=== PATIENT | female | born 1995 | race Caucasian/White ===

== ENCOUNTER 2017-04-09 23:42 | Emergency (ER) | payer OTHER ==
[~2017-04-09] VITALS: Ht 160 cm; Wt 81.6 kg
[2017-04-10 00:17] VITALS: BP 141/91
[2017-04-10] MEDS ORDERED: KETOROLAC TROMETH 60MG/2ML VIAL IM ONE (02:45)
[2017-04-10] MEDS ORDERED: CYCLOBENZAPRINE HCL 10 MG TAB PO ONE (02:45)
== END 2017-04-10 03:07 | disposition home or self-care (01) ==
LOC: ER 23:45
DX: M25.512 Pain in left shoulder (principal); E66.9 Obesity, unspecified; Z68.31 Body mass index [BMI] 31.0-31.9, adult; V43.52XA Car driver injured in collision with other type car in traffic accident, initial encounter; Y93.89 Activity, other specified; Y92.89 Other specified places as the place of occurrence of the external cause; Y99.8 Other external cause status

== ENCOUNTER 2019-09-22 18:20 | Emergency (ER) | payer OTHER ==
[~2019-09-22] VITALS: Ht 160 cm; Wt 92.5 kg
[2019-09-22 18:30] VITALS: BP 136/82
[2019-09-22] MEDS ORDERED: FLUORESCEIN SOD 1 MG TEST STRIP OP ONE (19:30)
[2019-09-22] MEDS ORDERED: TETRAHYDROZOLINE HCL 0.05% OPTH(EYE)SOL OP ONE (19:30)
[2019-09-22] MEDS ORDERED: TETRACAINE HCL 0.5% OPTH(EYE) SOLN 4ML EACHEYE ONE (19:45)
[2019-09-22 20:02] LABS: Hepatitis B Surface Antibody Negative
[2019-09-22] MEDS ORDERED: cefTRIAXone SOD 1,000 MG VL IM ONE (20:15)
[2019-09-22] MEDS ORDERED: AZITHROMYCIN 250 MG TAB PO ONE (20:15)
[2019-09-22 21:59] LABS: Hepatitis B Surface Antigen Negative (Negative)
== END 2019-09-22 21:12 | disposition home or self-care (01) ==
LOC: EEVIPCON 18:22 → ER 18:22
DX: Z77.21 Contact with and (suspected) exposure to potentially hazardous body fluids (principal)
CPT/HCPCS: 36415; 81025; 86703; 86706; 86803; 87340; 96372; 99284; J0696; 65220

== ENCOUNTER → 2020-04-22 | Outpatient (CLI) | payer OTHER | END | disposition home or self-care (01) | LOC: LAB 07:31 | PROVIDERS: ATTEND Physician Assistant | DX: U07.1 COVID-19 (principal) | CPT/HCPCS: C9803; U0003 ==